=== PATIENT | male | born 1960 | race Caucasian/White ===

== ENCOUNTER 2023-11-24 14:23 | Outpatient (CLI) | payer OTHER ==
--- NOTE | 2023-11-25 20:11 | SLEEP CARE CONSULTATION ---
Information from patient questionnaire entered by Martita Schulz. I have reviewed and concur with the information entered by Martita Schulz. This document represents the service I personally performed and the decisions made by me, Tess Downs MD, [facility]. History of Present Illness Service Date and Time: 11/24/2023 1423 Reason for Visit: New patient Chief Complaint: reports: Snoring, Other (UPDATE SUPPLIES) Date of Onset: 4YRS Usual bedtime: 2129 Time it takes to fall asleep: 5MINS Snores at night: Yes Observed to quit breathing while asleep: Yes Sleeps alone due to snoring: No Number of times waking at night: 1-2 Reasons for waking at night: reports: Bathroom Toss, Turn, or Twitch while sleeping: No Recalls having dreams: Yes Usually gets out of bed at: 050-0700 Feels refreshed in the morning: Yes Morning headache: No Ever fallen asleep while driving: No Takes day naps: No Dreams during day naps: No Prior sleep studies: Yes Additional HPI information: I had the pleasure of seeing Mr. Abrams today regarding obstructive sleep apnea- hypopnea. As you know, he is a 63-year-old gentleman who was diagnosed with the sleep-disordered breathing at [facility] in [place] in 2019. The AHI was 57.3, and adelso oxygen saturation, 68%. He was prescribed a CPAP device 3 years later by his primary care provider set at 8 14 cmH2O. He uses the ResMed AirSense 11 every night and all night. The compliance data show usage in 28 out of the past 30 nights, averaging 6.7 hours a night. The residual AHI is 1.3 and average air leak is 0.2 L/minute. He wears a nasal mask. He gets his supplies from [employer]. He finds the treatment beneficial. 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 Patient is and lives in . Have you smoked in the past 12 months: No Alcohol use: Yes Alcohol amount and frequency: 1 DRINK VERY SELDOM 1/ MONTH Caffeine use: Yes Caffeine amount and frequency: 1 DRINK Family History Family history of sleep disordered breathing: No Allergies and Home Medications Known drug allergies: No Drug allergies reviewed: Yes Home medication list reviewed: Yes Allergy and home medication list: Allergies No Known Drug Allergies Allergy (Verified 11/24/23 14:41) Review of Systems Weight loss over past 5 years: 20 Cardiovascular: reports: high blood pressure Respiratory: denies: shortness of breath, wheeze, sputum production, chronic cough, other Gastrointestinal: denies: heartburn, difficulty swallowing, nausea, vomitting, diarrhea, abdominal pain, other Urinary: denies: incontinence, frequency, urgency, impotence, other Neurological: denies: headaches, seizure, head trauma, disorientation, speech dysfunction, gait or balance problems, fainting or unconsciousness, other Psychiatric: denies: Attention Deficit Hyperactivity, anxiety, depression, mood disorder, claustrophobia, other Ear/Nose/Throat: reports: wisdom teeth removed Endocrine: denies: thyroid disease, history of goiter, sluggishness, too hot or cold, excessive thirst, increased appetite, increased urination, unexplained weakness, other Musculoskeletal: denies: joint pain, neck pain, back pain, joint swelling, muscle pain or cramping, mobility problems, other Immunologic: denies: sneezing, rash, itching, allergies to food or environment, other Physical Exam Vital signs obtained and entered by: MARTITA Clement MA Blood Pressure: 141/71 (LEFT ARM) Cuff size: long Heart Rate: 58 O2 Saturation: 97 Height: 5 ft 9.25 in Weight: 226 lb 6.4 oz Body Mass Index: 33.2 BMI Classification: Obese Neck circumference: 17.5 Mood/affect: normal HEENT: No craniofacial malformation Nostrils: patent to airflow Turbinates: normal Septum: midline Mouth and throat: narrow oropharynx Soft palate: long Hard palate: normal Uvula: normal Uvula visualization: 50% Mallampati Class II Tongue: normal in size Tonsils: small Chin and jaw: normal size and position Neck: normal w/o lymphadenopathy or thyromegaly Heart: regular rate and rhythm Lungs: clear bilaterally Extremities: no edema or clubbing Neurologic: intact Impression and Plan IMPRESSION: 1. Obstructive Sleep Apnea-Hypopnea Syndrome, severe, as previously diagnosed, The patient has good treatment compliance. He reports significant improvements on the treatment. The current pressure setting appears effective and comfortable. No adjustment is necessary today. I will refill his CPAP supplies. Plan: 1. Continue with autoCPAP set at 8 14 cmH20. 2. Try to lose weight. 3. Return for a follow up in a year or earlier if there is any problem. Continue with device pressure at (cmH2O): 8 - 14 Counseling Topics: Weight control Follow up with Sleep Care in: 1 year Visit Type: In Office Time Spent with Patient (minutes): 15 Provider Statement: I spent 100% of the Face to Face Visit with the patient with greater than 50% spent counseling the patient and coordination of care.
[2023-11-25 20:13] VITALS: BP 141/71; O2SAT 97
== END 2023-11-24 14:24 | disposition home or self-care (01) ==
LOC: SC 14:23
PROVIDERS: ATTEND Internal Medicine Pulmonary Disease
DX: G47.33 Obstructive sleep apnea (adult) (pediatric) (principal); E66.9 Obesity, unspecified; Z68.33 Body mass index [BMI] 33.0-33.9, adult
CPT/HCPCS: 99202; 99212